=== PATIENT | male | born 1985 | race African-American/Black ===

== ENCOUNTER 2018-05-01 15:18 | Emergency (ER) | payer SELFPAY ==
[~2018-05-01] VITALS: Ht 185.4 cm; Wt 83.9 kg
[2018-05-01] MEDS ORDERED: OFLO5DRO7 EACH EAR (16:54)
--- NOTE | 2018-05-01 16:56 | PHYS DOC ---
Past Medical History Past Medical History: No Pertinent History Past Surgical History: No Surgical History Alcohol Use: Occasionally Drug Use: None Adult General Chief Complaint Chief Complaint: EARACHE/EAR PAIN HPI HPI Patient is a 32 year old male who presents to the ER with complaints of bilateral ear pain for the last 3 days. Pt states his hearing is a little muffled and he reports hot and cold chills. He has not measured a fever. Pt denies any nausea, vomiting, diarrhea, sore throat, cough, shortness of breath, or wheezing. He reports that he often uses Q-tips to clean his ears. He denies any drainage or bleeding from the ears. Review of Systems Review of Systems Constitutional: See HPI Eyes: Denies change in visual acuity, redness, or eye pain [] HENT: See HPI Respiratory: Denies cough or shortness of breath [] Cardiovascular: No additional information not addressed in HPI [] GI: Denies abdominal pain, nausea, vomiting, or diarrhea [] Complete systems were reviewed and found to be within normal limits, except as documented in this note. Allergies Allergies Allergies Coded Allergies Type Severity Reaction Last Updated Verified Neomycin Allergy Intermediate hives 08/25/13 Yes Physical Exam Physical Exam Constitutional: Well developed, well nourished, no acute distress, non-toxic appearance. [] HENT: Normocephalic, atraumatic; L TM normal, R TM unable to visualize; pain with application of traction to bilateral pinna, bilateral canals reveal erythema, edema, and narrowing of the external auditory canal with purulent discharge noted; oropharynx moist, no oral exudates; nose normal. [] Eyes: conjunctiva normal, no discharge. [] Neck: Normal range of motion, no tenderness, supple, no stridor. [] Cardiovascular:Heart rate regular rhythm, no murmur [] Lungs & Thorax: Bilateral breath sounds clear to auscultation [] Skin: Warm, dry, no erythema, no rash. [] Neurologic: Alert and oriented X 3, normal motor function, normal sensory function, no focal deficits noted. [] Psychologic: Affect normal, judgement normal, mood normal. [] EKG EKG [] Radiology/Procedures Radiology/Procedures [] Course & Med Decision Making Course & Med Decision Making Pertinent Labs and Imaging studies reviewed. (See chart for details) [] Dragon Disclaimer Dragon Disclaimer This electronic medical record was generated, in whole or in part, using a voice recognition dictation system. Departure Departure Impression: Primary Impression: Otitis externa of both ears Disposition: 01 HOME, SELF-CARE Condition: STABLE Referrals: NO PCP (PCP) Patient Instructions: Otitis Externa, [facility] Additional Instructions: Fill the prescription and use as directed. Tylenol or ibuprofen as needed for pain/fever. Stop using Q-tips. Follow up with your PCP next week if symptoms persist, return to the ER if symptoms worsen. Scripts Ofloxacin (OFLOXACIN) 5 Ml Drops 5 DROP EACH EAR BID for 7 Days, #10 ML 0 Refills Prov: MEDINA BOWDEN [employer] 05/01/18 Problem Qualifiers Primary Impression: Otitis externa of both ears Otitis externa type: unspecified type Chronicity: unspecified Qualified Codes: H60.93 - Unspecified otitis externa, bilateral MEDINA BOWDEN [employer] May 01, 2018 16:56
[2018-05-01 17:29] VITALS: BP 163/86
== END 2018-05-01 17:46 | disposition home or self-care (01) ==
LOC: ER 15:18
DX: H60.93 Unspecified otitis externa, bilateral (principal); Z88.1 Allergy status to other antibiotic agents
CPT/HCPCS: 99283